=== PATIENT | male | born 1985 | race Caucasian/White ===

== ENCOUNTER 2017-11-02 16:54 | Emergency (ER) | payer SELFPAY ==
[2017-11-02 17:26] VITALS: BP 154/83
--- NOTE | 2017-11-02 18:49 | ER Document Report ---
ED Oral Problem - General Chief Complaint: Toothache Stated Complaint: TOOTH PAIN/MOUTH SWELLING Time Seen by Provider: 11/02/17 18:03 Notes: + swelling and pain to right lower jaw x 2 days. + hx/o gingivitis. TRAVEL OUTSIDE OF THE [place] IN LAST 30 DAYS: No - HPI Patient complains to provider of: Jaw pain, Swelling of jaw, Toothache Onset: Sudden Quality of pain: Achy Swollen jaw/face: Moderate Associated symptoms: None Worsened by: Nothing Relieved by: Nothing Similar symptoms previously: Yes Recently seen / treated by doctor/dentist: No - waiting on dental insurance - Related Data Allergies/Adverse Reactions: No Known Allergies Allergy (Unverified 11/02/17 16:55) Past Medical History - General Information source: Patient - Social History Smoking Status: Current Every Day Smoker Chew tobacco use (# tins/day): No Frequency of alcohol use: None Drug Abuse: None Lives with: Family Family History: Reviewed & Not Pertinent Patient has suicidal ideation: No Patient has homicidal ideation: No - Medical History Medical History: Negative Renal/ Medical History: Denies: Hx Peritoneal Dialysis Review of Systems - Review of Systems Constitutional: No symptoms reported EENT: No symptoms reported Cardiovascular: No symptoms reported Respiratory: No symptoms reported Gastrointestinal: No symptoms reported Genitourinary: No symptoms reported Male Genitourinary: No symptoms reported Musculoskeletal: No symptoms reported Skin: No symptoms reported Hematologic/Lymphatic: No symptoms reported Neurological/Psychological: No symptoms reported -: Yes All other systems reviewed and negative Physical Exam - Vital signs Vitals: Temp Pulse Resp BP Pulse Ox 98.3 F 76 18 154/83 H 98 11/02/17 17:24 11/02/17 17:24 11/02/17 17:24 11/02/17 17:24 11/02/17 17:24 Interpretation: Normal - General General appearance: Appears well, Alert - HEENT Head: Normocephalic, Atraumatic Eyes: Normal Pupils: PERRL Tympanic membrane: Normal Mouth/Lips: Caries - extensive decay. + right mandibular swelling Teeth diagram: 1 - pain. + gingival edema. no abscess appreciated. extensive tooth decay Pharynx: Normal Neck: Normal, Supple - Respiratory Respiratory status: No respiratory distress Chest status: Nontender Breath sounds: Normal Chest palpation: Normal - Cardiovascular Rhythm: Regular Heart sounds: Normal auscultation Murmur: No - Abdominal Inspection: Normal Distension: No distension Bowel sounds: Normal Tenderness: Nontender Organomegaly: No organomegaly - Back Back: Normal, Nontender - Extremities General upper extremity: Normal inspection, Nontender, Normal color, Normal ROM , Normal temperature General lower extremity: Normal inspection, Nontender, Normal color, Normal ROM , Normal temperature, Normal weight bearing. No: Myesha's sign - Neurological Neuro grossly intact: Yes Cognition: Normal Orientation: AAOx4 Sperry Coma Scale Eye Opening: Spontaneous Sperry Coma Scale Verbal: Oriented Salud Coma Scale Motor: Obeys Commands Salud Coma Scale Total: 15 Speech: Normal Motor strength normal: LUE, RUE, LLE, RLE Sensory: Normal - Psychological Associated symptoms: Normal affect, Normal mood - Skin Skin Temperature: Warm Skin Moisture: Dry Skin Color: Normal Course - Re-evaluation Re-evalutation: 11/02/17 18:50 no sign of ludwigs or peritonsillar abscess. home care, Follow up with PCP, ED return precautions discussed with pt. agreeable with plan and stable for discharge - Vital Signs Vital signs: Temp Pulse Resp BP Pulse Ox 98.3 F 76 18 154/83 H 98 11/02/17 17:24 11/02/17 17:24 11/02/17 17:24 11/02/17 17:24 11/02/17 17:24 Discharge - Discharge Clinical Impression: Dental infection Condition: Stable Instructions: [facility]aring [facility], Penicillin V K ([facility]), Toothache ([facility]), Ibuprofen (General) ([facility]) Additional Instructions: Take antibiotics as prescribed Motrin for swelling and pain Follow up with dental for further evaluation and treatment Prescriptions: Ibuprofen [Motrin 800 Mg Tablet] 800 mg PO Q6H #20 tablet Penicillin V Potassium [Penicillin Vk 500 mg Tablet] 500 mg PO QID #28 tablet
[2017-11-02] MEDS ORDERED: IBUPROFEN 800 MG TABLET PO ONE (19:11)
[2017-11-02] MEDS ORDERED: HYDROCODONE/ACETAMINOPHEN 5-325 MG (6 TAB/ER DISP) PO PRN (19:12)
== END 2017-11-02 19:33 | disposition home or self-care (01) ==
LOC: ER 16:54
DX: K04.7 Periapical abscess without sinus (principal); R68.84 Jaw pain; F17.200 Nicotine dependence, unspecified, uncomplicated
CPT/HCPCS: 99282